=== PATIENT | male | born 1990 | race Caucasian/White ===

== ENCOUNTER → 2018-01-03 10:33 | Outpatient (CLI) | payer OTHER, SELFPAY ==
--- NOTE | 2018-01-03 | DI.RAD.S_ITS ---
PROCEDURE: XR AC JOINT BI INDICATIONS: RIGHT AC SEPARATION INJURY TECHNIQUE: 2 views each of both acromioclavicular joints were acquired. [facility], 06/18/2013, 17:02. FINDINGS: Bones: No fractures or dislocations. Weightbearing views demonstrate normal acromioclavicular joint alignment as well. No suspicious bony lesions. Superior ribs appear normal. Soft tissues: No suspicious soft tissue calcifications. IMPRESSION: Negative examination as above. If the patient's symptoms persist, further evaluation with shoulder MRI without contrast could be performed. Dictated by: Lucio Baugh M.D. on 01/03/2018 at 11:50 Approved by: Lucio Baugh M.D. on 01/03/2018 at 11:51
== END ==
PROVIDERS: PCP Family Medicine; Visit Provider Chiropractor
DX: S49.91XA Unspecified injury of right shoulder and upper arm, initial encounter (principal); M25.511 Pain in right shoulder
CPT/HCPCS: 73050

== ENCOUNTER → 2024-01-19 08:49 | Outpatient (CLI) | payer SELFPAY ==
--- NOTE | 2024-01-19 09:03 | DI.RAD.S_ITS ---
PROCEDURE: XR CERVICAL SPINE MIN 6V INDICATIONS: Cervicobrachial syndrome TECHNIQUE: 7 views of the cervical spine were acquired. COMPARISON: None. FINDINGS: Bones: No fractures or dislocations to the T1 level. No suspicious bony lesions. There is normal range of motion between flexion and extension, with preserved normal bony alignment. Both oblique use show widely patent neural foramina Soft tissues: Prevertebral soft tissues are normal in thickness. IMPRESSION: Normal cervical spine radiographs without evidence of osseous foraminal stenosis or segmental instability. Approved by: Faraz Mixon M.D. on 01/19/2024 at 15:11
--- NOTE | 2024-01-19 09:03 | DI.RAD.S_ITS ---
PROCEDURE: XR WRIST LT MIN 3V INDICATIONS: Pain in left wrist TECHNIQUE: 4 views of the wrist were acquired. COMPARISON: None. FINDINGS: Bones: No fractures or dislocations. No suspicious bony lesions. Soft tissues: No suspicious soft tissue calcifications. IMPRESSION: Normal left wrist radiographs Approved by: Faraz Mixon M.D. on 01/19/2024 at 15:10
--- NOTE | 2024-01-19 09:03 | DI.RAD.S_ITS ---
PROCEDURE: XR HAND LT MIN 3V INDICATIONS: Pain in left wrist TECHNIQUE: 3 views of the hand(s) acquired. COMPARISON: None. FINDINGS: Bones: No fractures or dislocations. Carpal bones are normally aligned. No suspicious bony lesions. Soft tissues: No suspicious soft tissue calcifications. IMPRESSION: Normal left hand radiographs Approved by: Faraz Mixon M.D. on 01/19/2024 at 15:10
== END ==
LOC: RAD 08:58
PROVIDERS: Family Provider Family Medicine; PCP Family Medicine; Referring Provider Chiropractor; Visit Provider Chiropractor
DX: M53.1 Cervicobrachial syndrome (principal); M54.2 Cervicalgia; M25.532 Pain in left wrist
CPT/HCPCS: 72052; 73110; 73130